=== PATIENT | male | born 2000 | race Two or more races ===

== ENCOUNTER 2021-10-13 10:33 | Inpatient (IN) | payer MEDICAID ==
[~2021-10-13] VITALS: Ht 177.8 cm; Wt 85.5 kg
[2021-10-13 11:30] VITALS: BP 96/67
[2021-10-13] MEDS ORDERED: nicotine 21mg patch - 24 hr TD SCH (11:40)
[2021-10-13] MEDS ORDERED: acetaminophen 325mg tablet PO PRN (11:40)
[2021-10-13] MEDS ORDERED: loperamide 2mg capsule PO PRN (11:40)
[2021-10-13] MEDS ORDERED: mag hydrox/Alum hydrox/simeth 30ml oral suspension PO PRN (11:40)
[2021-10-13] MEDS ORDERED: NICOTINE POLACRILEX 2 MG LOZENGE BC PRN (11:40)
[2021-10-13] MEDS ORDERED: RISP2TAB97 PO (11:50)
[2021-10-13] MEDS ORDERED: thiamine PO (11:50)
[2021-10-13] MEDS ORDERED: BENZ1TAB7 PO (11:50)
[2021-10-13] MEDS ORDERED: folic acid PO (11:50)
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
--- NOTE | 2021-10-13 14:44 | NUR ---
Malnutrition consult: Pt unsure of wt loss though with decreased appetite per malnutrition risk screen with RN. Per EMR pt A/O x 2 and a poor historian. No scaled wt hx in EMR though current scaled wt is appropriate. Pending documentation of PO intake on a regular diet. Pt with no documented decrease in muscle strength or edema. Pt currently lacks a minimum of two criteria for malnutrition though will continue to follow and monitor qualifying criteria. Addendum: 10/13/21 at [address] Amended: Links added.
--- NOTE | 2021-10-13 14:54 | NUR ---
F/u: Pt with 100% PO intake of first meal. Addendum: 10/13/21 at [address] Amended: Links added.
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
[2021-10-13 19:05] VITALS: BP 98/54
[2021-10-13] MEDS: benztropine 1mg tablet PO SCH (20:10)
[2021-10-13] MEDS: risperiDONE 2mg tablet PO SCH (20:11)
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
[2021-10-14 07:10] VITALS: BP 128/73
[2021-10-14] MEDS: risperiDONE 2mg tablet PO SCH ×2 (07:50→20:38)
[2021-10-14] MEDS: folic acid 1mg tablet PO SCH (07:50)
[2021-10-14] MEDS: thiamine 100mg tablet PO SCH (07:50)
[2021-10-14] MEDS: benztropine 1mg tablet PO SCH ×2 (07:50→20:38)
[2021-10-14 08:36] LABS: CHOL/HDL RATIO 3.2 (0.00-4.99); CHOLESTEROL 197 MG/DL (0-200); HDL CHOLESTEROL 61 MG/DL (35-60); LDL CHOLESTEROL 122 MG/DL (50-100); TRIGLYCERIDES 38 MG/DL (20-135)
[2021-10-14] MEDS: acetaminophen 325mg tablet PO PRN (12:01)
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
[2021-10-14 19:39] VITALS: BP 97/54
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
[2021-10-15 07:20] VITALS: BP 128/73
[2021-10-15] MEDS: benztropine 1mg tablet PO SCH ×2 (07:53→20:20)
[2021-10-15] MEDS: thiamine 100mg tablet PO SCH (07:53)
[2021-10-15] MEDS: folic acid 1mg tablet PO SCH (07:53)
[2021-10-15] MEDS: risperiDONE 2mg tablet PO SCH ×2 (07:53→20:20)
[2021-10-15] MEDS: magnesium hydroxide 30ml (MOM) UD suspension PO PRN (11:31)
[2021-10-15] MEDS: acetaminophen 325mg tablet PO PRN (11:31)
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
[2021-10-15 19:36] VITALS: BP 105/60
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
[2021-10-16] MEDS: thiamine 100mg tablet PO SCH (07:59)
[2021-10-16 08:00] VITALS: BP 100/75
[2021-10-16] MEDS: folic acid 1mg tablet PO SCH (08:00)
[2021-10-16] MEDS: risperiDONE 2mg tablet PO SCH ×2 (08:00→20:16)
[2021-10-16] MEDS: benztropine 1mg tablet PO SCH ×2 (08:00→20:16)
[2021-10-16] MEDS: duloxetine 30mg CAPSULE.DR PO SCH (08:00)
[2021-10-16] MEDS: acetaminophen 325mg tablet PO PRN ×2 (12:06→17:01)
[2021-10-16] MEDS: magnesium hydroxide 30ml (MOM) UD suspension PO PRN (12:20)
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
[2021-10-16 19:19] VITALS: BP 99/55
[2021-10-16] MEDS: polyethylene glycol 3350 17gm powd pack PO SCH (20:16)
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
[2021-10-17 07:00] VITALS: BP 117/61
[2021-10-17] MEDS: thiamine 100mg tablet PO SCH (07:59)
[2021-10-17] MEDS: risperiDONE 2mg tablet PO SCH ×2 (07:59→20:14)
[2021-10-17] MEDS: duloxetine 30mg CAPSULE.DR PO SCH (07:59)
[2021-10-17] MEDS: benztropine 1mg tablet PO SCH ×2 (07:59→20:13)
[2021-10-17] MEDS: folic acid 1mg tablet PO SCH (07:59)
--- NOTE | 2021-10-17 14:13 | NUR ---
Initial: Pt admit for psychosis. Currently on a regular diet and eating well with 100% PO intake throughout LOS meeting estimated nutrient needs. LBM 10/16, receiving routine and PRN bowel care. No documented edema or wounds. No nutrition diagnosis at this time. Will continue to follow. Recommendations: 1) Continue regular diet 2) Routine bowel care 3) Weekly scaled weights Addendum: 10/17/21 at [address] Amended: Links added.
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
[2021-10-17 19:27] VITALS: BP 95/68
[2021-10-17] MEDS: risperiDONE 0.5mg tablet PO SCH (20:13)
[2021-10-17] MEDS: polyethylene glycol 3350 17gm powd pack PO SCH (20:18)
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
[2021-10-18 07:47] VITALS: BP 92/50
[2021-10-18] MEDS: duloxetine 30mg CAPSULE.DR PO SCH (08:13)
[2021-10-18] MEDS: folic acid 1mg tablet PO SCH (08:13)
[2021-10-18] MEDS: benztropine 1mg tablet PO SCH ×2 (08:13→20:18)
[2021-10-18] MEDS: risperiDONE 2mg tablet PO SCH ×2 (08:14→20:17)
[2021-10-18] MEDS: thiamine 100mg tablet PO SCH (08:14)
[2021-10-18] MEDS: acetaminophen 325mg tablet PO PRN ×2 (14:24→18:37)
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
[2021-10-18 19:12] VITALS: BP 103/62
[2021-10-18] MEDS: gabapentin 100mg capsule PO SCH (20:16)
[2021-10-18] MEDS: risperiDONE 0.5mg tablet PO SCH (20:17)
[2021-10-18] MEDS: traZODone 50mg tablet PO PRN (20:18)
[2021-10-18] MEDS: polyethylene glycol 3350 17gm powd pack PO SCH (20:19)
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
[2021-10-19 07:30] VITALS: BP 123/69
[2021-10-19] MEDS: risperiDONE 2mg tablet PO SCH ×2 (08:08→20:31)
[2021-10-19] MEDS: duloxetine 30mg CAPSULE.DR PO SCH (08:09)
[2021-10-19] MEDS: folic acid 1mg tablet PO SCH (08:09)
[2021-10-19] MEDS: benztropine 1mg tablet PO SCH ×2 (08:09→20:31)
[2021-10-19] MEDS: gabapentin 100mg capsule PO SCH ×3 (08:09→20:31)
[2021-10-19] MEDS: thiamine 100mg tablet PO SCH (08:09)
--- NOTE | 2021-10-19 16:13 | NUR ---
PROBABLE CAUSE HEARING FOR 5250 DTS/GD WAS UPHELD
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
[2021-10-19] MEDS: acetaminophen 325mg tablet PO PRN (19:10)
[2021-10-19 19:38] VITALS: BP 106/56
[2021-10-19] MEDS: risperiDONE 0.5mg tablet PO SCH (20:30)
[2021-10-19] MEDS: polyethylene glycol 3350 17gm powd pack PO SCH (20:31)
[2021-10-19] MEDS: traZODone 50mg tablet PO PRN (20:39)
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
[2021-10-20 07:34] VITALS: BP 97/52
[2021-10-20] MEDS: folic acid 1mg tablet PO SCH (08:04)
[2021-10-20] MEDS: gabapentin 100mg capsule PO SCH ×3 (08:04→20:14)
[2021-10-20] MEDS: thiamine 100mg tablet PO SCH (08:04)
[2021-10-20] MEDS: benztropine 1mg tablet PO SCH ×2 (08:04→20:14)
[2021-10-20] MEDS: risperiDONE 2mg tablet PO SCH ×2 (08:04→20:14)
--- NOTE | 2021-10-20 08:58 | NUR ---
Pt. attended group today. We talked about healthy living habits such as sleep, exercise, and nutrition and medication management. Pt. sat quietly in the group listening to his peers and this Rat Culturist. He declined sharing any of his thoughts. His overall demeanor was calm and pleasant. Mary Worley LCSW
[2021-10-20] MEDS: duloxetine 30mg CAPSULE.DR PO SCH (09:14)
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
[2021-10-20] MEDS: acetaminophen 325mg tablet PO PRN (18:52)
[2021-10-20 19:42] VITALS: BP 105/59
[2021-10-20] MEDS: risperiDONE 0.5mg tablet PO SCH (20:13)
[2021-10-20] MEDS: traZODone 50mg tablet PO PRN (20:14)
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
[2021-10-21] MEDS: gabapentin 100mg capsule PO SCH ×2 (07:13→13:36)
[2021-10-21] MEDS: benztropine 1mg tablet PO SCH ×2 (07:14→20:09)
[2021-10-21] MEDS: folic acid 1mg tablet PO SCH (07:14)
[2021-10-21] MEDS: risperiDONE 2mg tablet PO SCH ×2 (07:14→20:09)
[2021-10-21] MEDS: thiamine 100mg tablet PO SCH (07:14)
[2021-10-21] MEDS: duloxetine 30mg CAPSULE.DR PO SCH (07:14)
[2021-10-21 07:20] VITALS: BP 104/60
--- NOTE | 2021-10-21 14:46 | NUR ---
Pt. attended group today. We discussed Radical Acceptance and Distress Tolerance skills. This Cabin Worker led a visualization that Pt. participated in. We completed a Self-Care Wheel exercise as well. Pt. engaged in the group well. He had a calm and pleasant demeanor. He was alert and oriented X 4. He was quiet and spoke minimally in group but listened intently to this Cabin Worker and his peers. Hr participated in the Visualization and reported that is was helpful to him. Mary Worley, SUPERVISOR HOT DIP [employer]ATING
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
[2021-10-21 19:33] VITALS: BP 112/70
[2021-10-21] MEDS: traZODone 50mg tablet PO PRN (20:09)
[2021-10-21] MEDS: gabapentin 300mg capsule PO SCH (20:09)
[2021-10-21] MEDS: risperiDONE 0.5mg tablet PO SCH (20:10)
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
[2021-10-22 07:32] VITALS: BP 99/46
[2021-10-22] MEDS: duloxetine 30mg CAPSULE.DR PO SCH (08:20)
[2021-10-22] MEDS: benztropine 1mg tablet PO SCH ×2 (08:21→20:08)
[2021-10-22] MEDS: risperiDONE 2mg tablet PO SCH ×2 (08:21→20:07)
[2021-10-22] MEDS: folic acid 1mg tablet PO SCH (08:21)
[2021-10-22] MEDS: gabapentin 300mg capsule PO SCH ×3 (08:21→20:08)
[2021-10-22] MEDS: thiamine 100mg tablet PO SCH (08:21)
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
[2021-10-22 19:34] VITALS: BP 108/67
[2021-10-22] MEDS: risperiDONE 0.5mg tablet PO SCH (20:07)
[2021-10-22] MEDS: traZODone 50mg tablet PO SCH (20:08)
[2021-10-22] MEDS: acetaminophen 325mg tablet PO PRN (20:09)
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
[2021-10-23] MEDS: duloxetine 30mg CAPSULE.DR PO SCH (07:12)
[2021-10-23] MEDS: thiamine 100mg tablet PO SCH (07:12)
[2021-10-23] MEDS: risperiDONE 2mg tablet PO SCH ×2 (07:13→20:22)
[2021-10-23] MEDS: benztropine 1mg tablet PO SCH ×2 (07:13→20:22)
[2021-10-23] MEDS: gabapentin 300mg capsule PO SCH ×3 (07:13→20:22)
[2021-10-23] MEDS: folic acid 1mg tablet PO SCH (07:13)
[2021-10-23 07:33] VITALS: BP 105/52
--- NOTE | 2021-10-23 09:19 | NUR ---
Pt. attended group today. Each pt. scaled their mood and anxiety level today to practice scaling. We discussed how trauma/emotion remains in your body and how the brain send messages to the amygdala which can cause a flight/fight response. Pt. engaged well in the group, he was interested in the information about the limbic system. Pt spoke minimally but listened intently and engaged in writing down his coping skills. He was alert and oriented X 4. His thought content and thought process appeared WNL. He was pleasant to work with. He appropriately interacted with his peers. Mary Worley LCSW Addendum: 10/23/21 at 0958 by Mary Worley This note was for attendance at group yesterday 10/22/2021.
--- NOTE | 2021-10-23 14:49 | NUR ---
Met with Marcel as he wanted to discuss discharge plan. He reported he wants to stay in [facility]. He reported he is homeless and does not want to return to [facility]. He also noted he does not know anyone in [place]. He inquired about services in [place] and junior copywriter informed him that he would have to wait for his Medi-ashleigh to change before he could access services which could take a month or two. Called [facility] for additional information. They reported his [facility] only pays for out-patient drug and alcohol tx, not inpatient. [facility] does have out-patient services which he could utilize. They reported he had been homeless in [place]. Inquired if he is on probation and they said they do not have access to that information. They reported Marcel can access the [place] [facility] or the [facility] upon discharge. JUAN MIGUEL Guillen
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
[2021-10-23 19:00] VITALS: BP 107/70
[2021-10-23] MEDS: acetaminophen 325mg tablet PO PRN (19:03)
[2021-10-23] MEDS: traZODone 50mg tablet PO SCH (20:22)
[2021-10-23] MEDS: risperiDONE 0.5mg tablet PO SCH (20:22)
--- NOTE | 2021-10-23 23:00 | NUR ---
5150 NOTE: REASON FOR ADMIT: "Patient unable to state how he would meet his basic needs, including food and detention. Hx of grave disability."
--- NOTE | 2021-10-24 02:05 | NUR ---
Nursing Progress Note: Legal hold: 5250 Client on involuntary status for GD Report received from DRE Bennett with use of SBAR. Why they are here: "Patient unable to state how he would meet his basic needs, including food and assisted. Hx of grave disability." Assessment What has happened this shift: Patient watching TV and social with peers in the recreation room at the beginning of shift. Pleasant and cooperative with care; compliant with medication. PRN Tylenol provided upon patient request for hand pain with effective results reported. Patient denies SI, HI, A/VH this shift; does not appear to be responding to IS and no apparent delusions reported. Patient participated in HS snack and continued to watch TV with peers prior to bed; observed sleeping and does not appear to be having difficulty. S/I, H/I: Denies A/VH: Denies Sleep: Refer to sleep assessment ADL's: Independent Group attendance: NA Were meds taken: Yes Any med S/E: None observed or reported Mental Status Exam Appearance: Neat and appropriately dressed in green unit attire Eye contact: Fair Behavior: Pleasant and cooperative, social, watching TV with peers Speech: Clear, audible, regular rate rhythm Mood: Good Affect: Congruent Thought process: Linear Thought Content: Meeting needs Cognition: A&O x3 Insight: Poor Judgment: Poor Interventions PRN's used: Tylenol Therapeutic interventions: Maintained a safe and supportive environment, ensured contract for safety, provided direction and assistance as needed, monitored rt provided active listening and positive encouragement, and maintained Q 15min safety checks. Restraints/seclusion/emergency medication: NA Justification of Continued Inpatient Treatment: PA, pt. continues to require medication adjustments and a safe and supportive environment.
[2021-10-24 08:00] VITALS: BP 115/68
[2021-10-24] MEDS: gabapentin 300mg capsule PO SCH ×3 (08:52→20:05)
[2021-10-24] MEDS: benztropine 1mg tablet PO SCH ×2 (08:52→20:05)
[2021-10-24] MEDS: risperiDONE 2mg tablet PO SCH ×2 (08:52→20:04)
[2021-10-24] MEDS: duloxetine 30mg CAPSULE.DR PO SCH (08:52)
[2021-10-24] MEDS: folic acid 1mg tablet PO SCH (08:52)
[2021-10-24] MEDS: thiamine 100mg tablet PO SCH (08:52)
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
[2021-10-24 19:39] VITALS: BP 104/65
[2021-10-24] MEDS: risperiDONE 0.5mg tablet PO SCH (20:04)
[2021-10-24] MEDS: traZODone 50mg tablet PO SCH (20:05)
[2021-10-24] MEDS: acetaminophen 325mg tablet PO PRN (20:05)
--- NOTE | 2021-10-25 04:17 | NUR ---
Nursing Progress Note: Legal hold: 5250 Client on involuntary status for GD Report received from DRE Bennett with use of SBAR. Why they are here: "Patient unable to state how he would meet his basic needs, including food and skilled nursing. Hx of grave disability." Assessment What has happened this shift: Patient watching TV with peers in the community room at the beginning of shift. Pleasant and cooperative with care; compliant with medication. PRN Tylenol provided for his hand pain with effectiveness reported. Patient reported a sore throat this shift, denies SOB and body aches, VSS. Patient endorsed "a little bit" of SI this shift with no plan, denies HI, A/VH; does not appear to be responding to IS and no apparent delusions reported. Patient participated in HS snack and continued to watch TV with peers prior to bed; observed sleeping and does not appear to be having difficulty. S/I, H/I: Passive SI A/VH: Denies Sleep: Refer to sleep assessment ADL's: Independent Group attendance: NA Were meds taken: Yes Any med S/E: None observed or reported Mental Status Exam Appearance: Neat and appropriately dressed in green unit attire Eye contact: Fair Behavior: Pleasant and cooperative, social, watching TV with peers Speech: Clear, audible, regular rate rhythm Mood: Good Affect: Congruent Thought process: Linear Thought Content: Meeting needs Cognition: A&O x3 Insight: Poor Judgment: Poor Interventions PRN's used: Tylenol Therapeutic interventions: Maintained a safe and supportive environment, ensured contract for safety, provided direction and assistance as needed, monitored rt provided active listening and positive encouragement, and maintained Q 15min safety checks. Restraints/seclusion/emergency medication: NA Justification of Continued Inpatient Treatment: PA, pt. continues to require medication adjustments and a safe and supportive environment.
[2021-10-25 07:11] VITALS: BP 107/50
--- NOTE | 2021-10-25 07:15 | NUR ---
Reassessment: Pt currently on a regular diet and eating well with 100% PO intake throughout LOS meeting estimated nutrient needs. [facility] 10/16, receiving routine and PRN bowel care. No documented edema or wounds. No nutrition diagnosis at this time. Will continue to follow. Recommendations: 1) Continue regular diet 2) Routine bowel care 3) Weekly scaled weights Addendum: 10/25/21 at [address] Amended: Links added.
[2021-10-25] MEDS: folic acid 1mg tablet PO SCH (08:39)
[2021-10-25] MEDS: benztropine 1mg tablet PO SCH ×2 (08:40→20:29)
[2021-10-25] MEDS: duloxetine 30mg CAPSULE.DR PO SCH (08:40)
[2021-10-25] MEDS: gabapentin 300mg capsule PO SCH ×3 (08:40→20:29)
[2021-10-25] MEDS: thiamine 100mg tablet PO SCH (08:40)
[2021-10-25] MEDS: risperiDONE 2mg tablet PO SCH ×2 (08:40→20:29)
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
[2021-10-25 19:15] VITALS: BP 108/63
[2021-10-25] MEDS: traZODone 50mg tablet PO SCH (20:29)
[2021-10-25] MEDS: risperiDONE 0.5mg tablet PO SCH (20:29)
[2021-10-25] MEDS: acetaminophen 325mg tablet PO PRN (20:36)
--- NOTE | 2021-10-26 04:42 | NUR ---
Nursing Progress Note: Legal hold: 5250 Client on involuntary status for GD Report received from Amador RN with use of SBAR. Why they are here: "Patient unable to state how he would meet his basic needs, including food and prison. Hx of grave disability." Assessment What has happened this shift: Patient watching TV with peers at the beginning of shift. Pleasant and cooperative with care; compliant with medication. PRN Tylenol provided for AGUILERA and hand pain. Patient reports some nasal congestion and sore throat this shift. He denies SI, HI, A/VH. Patient participated in HS snack prior to bed; observed sleeping and does not appear to be having difficulty. S/I, H/I: Denies A/VH: Denies Sleep: Refer to sleep assessment ADL's: Independent Group attendance: NA Were meds taken: Yes Any med S/E: None observed or reported Mental Status Exam Appearance: Neat and appropriately dressed for the unit Eye contact: Good Behavior: Pleasant and cooperative, social, watching TV with peers Speech: Clear, audible, regular rate rhythm Mood: Good Affect: Congruent Thought process: Linear Thought Content: Meeting needs Cognition: A&O x3 Insight: Poor Judgment: Poor Interventions PRN's used: Tylenol Therapeutic interventions: Maintained a safe and supportive environment, ensured contract for safety, provided direction and assistance as needed, monitored rt provided active listening and positive encouragement, and maintained Q 15min safety checks. Restraints/seclusion/emergency medication: NA Justification of Continued Inpatient Treatment: PA, pt. continues to require medication adjustments and a safe and supportive environment.
[2021-10-26 08:00] VITALS: BP 110/70
[2021-10-26] MEDS: thiamine 100mg tablet PO SCH (08:16)
[2021-10-26] MEDS: risperiDONE 2mg tablet PO SCH ×2 (08:16→20:36)
[2021-10-26] MEDS: gabapentin 300mg capsule PO SCH ×3 (08:16→20:36)
[2021-10-26] MEDS: duloxetine 30mg CAPSULE.DR PO SCH (08:16)
[2021-10-26] MEDS: folic acid 1mg tablet PO SCH (08:16)
[2021-10-26] MEDS: benztropine 1mg tablet PO SCH ×2 (08:16→20:36)
--- NOTE | 2021-10-26 13:02 | NUR ---
Nursing Progress Note: Legal hold: 5250 Client on involuntary status for GD Report received from nurse with use of SBAR: Amador RN Why are they here: "Patient unable to state how he would meet his basic needs, including food and fci. Hx of grave disability." Assessment What has happened this shift: Received pt. sleeping in bed at the beginning of the shift, he was awoken for breakfast which he ate in his room per unit protocol at this time. Pt. consented to wearing a mask when out of his room, however requires frequent reminders. This senior grant writer introduced self and established rapport, he presents as cooperative, guarded, slightly anxious, and withdrawn. Pt. reports ongoing A/AGUILERA which are command in nature, he states, "They tell me to hurt myself and (random) others." He also admits to S/I due to these A/AGUILERA, but does not endorse any current plan. Pt. is able to contract for safety, and reports he is able to ignore the voices, states, "I just lay in my bed." This senior grant writer provided education to pt. to notify staff of any changes (inability to ignore A/AGUILERA or increasing S/I), and he reported understanding. Pt. also reports paranoid delusional thoughts that others want to hurt him. When questioned regarding plans for discharge, pt. reports he is unsure and he has no family or friends here, but would like to stay in [facility]. Pt. remains up throughout the day in the Group and Recreation Rooms watching TV and interacting appropriately with others. He is compliant with wearing a mask, V/S are WNL, and no s/s of cold, fatigue, or headache exhibited. S/I, H/I: Pt. reports S/I, does not endorse any current plan A/VH: Ongoing command A/AGUILERA telling him to hurt himself and random others Sleep: Sleep hours are 7.5, and pt. naps intermittently during the day ADL's: Pt. requires some direction and encouragement Group attendance: N/A Were meds taken: Yes Any med S/E: None Mental Status Exam Appearance: Pt. is wearing green scrubs and a black beanie cap on his head Eye contact: Fair Behavior: Cooperative, guarded, slightly anxious, and withdrawn Speech: Soft and minimal, pt. responds to closed-ended questions Mood: Guarded and slightly anxious Affect: Blunted Thought process: Poverty of thought with possible thought blocking Thought Content: Command A/AGUILERA and paranoid delusions Cognition: A&O X4 Insight: Poor Judgment: Poor Interventions PRN's used: None Therapeutic interventions: Introduced self and established rapport, maintained a safe and therapeutic environment, ensured contact for safety, provided clear and simple instructions, attempted to orient to reality, monitored V/S and physical adverse s/s, and maintained Q 15min safety checks. Restraints/seclusion/emergency medication: N/A Justification of Continued Inpatient Treatment: Per Dr. Walls, pt. continues to require a safe and supportive environment. He will discharge to [facility] or [facility], to be discussed with social scientist.
[2021-10-26 19:00] VITALS: BP 111/66
[2021-10-26] MEDS: traZODone 50mg tablet PO SCH (20:36)
[2021-10-26] MEDS: risperiDONE 0.5mg tablet PO SCH (20:36)
[2021-10-26] MEDS: acetaminophen 325mg tablet PO PRN (20:40)
--- NOTE | 2021-10-27 01:32 | NUR ---
Nursing Progress Note: Legal hold: 5250 Client on involuntary status for GD Report received from DRE Bennett with use of SBAR. Why they are here: "Patient unable to state how he would meet his basic needs, including food and long term. Hx of grave disability." Assessment What has happened this shift: Patient watching football with peers in the recreation room at the beginning of shift. Pleasant and cooperative with care; compliant with medication. PRN Tylenol provided for hand pain per patient request. Denies SI, HI, A/VH this shift and does not appear to be responding to IS. No apparent delusions reported. Patient participated in HS snack prior to bed; observed sleeping and does not appear to be having difficulty. S/I, H/I: Denies A/VH: Denies Sleep: Refer to sleep assessment ADL's: Independent Group attendance: NA Were meds taken: Yes Any med S/E: None observed or reported Mental Status Exam Appearance: Neat and appropriately dressed for the unit Eye contact: Good Behavior: Pleasant and cooperative, social, watching TV with peers Speech: Clear, audible, regular rate rhythm Mood: Good Affect: Congruent Thought process: Linear Thought Content: Meeting needs Cognition: A&O x3 Insight: Poor Judgment: Poor Interventions PRN's used: Tylenol Therapeutic interventions: Maintained a safe and supportive environment, ensured contract for safety, provided direction and assistance as needed, monitored rt provided active listening and positive encouragement, and maintained Q 15min safety checks. Restraints/seclusion/emergency medication: NA Justification of Continued Inpatient Treatment: PA, pt. continues to require medication adjustments and a safe and supportive environment.
[2021-10-27 07:28] VITALS: BP 93/50
[2021-10-27] MEDS: folic acid 1mg tablet PO SCH (08:14)
[2021-10-27] MEDS: thiamine 100mg tablet PO SCH (08:14)
[2021-10-27] MEDS: benztropine 1mg tablet PO SCH ×2 (08:14→20:50)
[2021-10-27] MEDS: risperiDONE 2mg tablet PO SCH ×2 (08:14→20:51)
[2021-10-27] MEDS: duloxetine 30mg CAPSULE.DR PO SCH (08:14)
[2021-10-27] MEDS: gabapentin 300mg capsule PO SCH ×3 (08:14→20:50)
--- NOTE | 2021-10-27 08:34 | NUR ---
DCP Presenting Issues: Pt's stable and needs assistance w/dcp as he's homeless. Interventions: SS met w/pt and engaged him in dcp activities. Clinician utilized CBT strategies and provided support for pt to explore the pros & cons of staying in [facility] while he has [facility]. Per session pt agreed to rt to [facility] and want assistance to get to a residential in [place]. Clinician had t/c w/[facility] DCP-[facility], per t/c Patricia will fax paperwork for pt to sign so [facility] can assist with pt's [id number] to residential bed in [place]. Plan: Clinician will obtain pt's signature on DYLON and send it back to [facility], d/c is pending COVID quarantine situation at this time. Aleah Horne LCSW Addendum: 10/27/21 at 1024 by Aleah ZHOU Amended: Links added.
--- NOTE | 2021-10-27 13:47 | NUR ---
DCP Clinician obtained pt's signature on DYLON & sent to [facility] to facilitate pt's access to services & support from [facility] upon d/c. Aleah Horne LCSW Addendum: 10/27/21 at 1352 by Aleah Horne SS Amended: Links added.
--- NOTE | 2021-10-27 14:19 | NUR ---
Nursing Progress Note: Legal hold: 5250 Client on involuntary status for GD Report received from nurse with use of SBAR: DRE Capps Why are they here: "Patient unable to state how he would meet his basic needs, including food and usp. Hx of grave disability." Assessment What has happened this shift: Received pt. sleeping in bed at the beginning of the shift, he was awoken for breakfast which he ate in his room per unit protocol at this time. Afterwards, pt. remains up with his room mate in the Recreation Room watching TV. 1:1 completed later, pt. continues to report some ongoing A/AGUILERA that tell him to hurt himself and random others, however he admits they are much less than before. He denies any S/I or H/I, however continues to report ongoing thoughts of random others wanting to hurt him. Pt's affect remains flat and he responds to direct questions only with a minimal response. Pt. remains up throughout the day in the Recreation Rooms watching TV and interacting appropriately, although minimally with others. He is compliant with wearing a mask, V/S are WNL, and no s/s of cold, fatigue, or headache exhibited. S/I, H/I: Denies A/VH: Some ongoing A/AGUILERA telling him to hurt himself and random others Sleep: Sleep hours are 7.25 ADL's: Pt. requires some direction and encouragement Group attendance: N/A Were meds taken: Yes Any med S/E: None Mental Status Exam Appearance: Neat and appropriately dressed Eye contact: Fair Behavior: Cooperative, guarded, slightly anxious, and withdrawn Speech: Soft and minimal, pt. responds to closed-ended questions Mood: Guarded and slightly anxious Affect: Flat Thought process: Poverty of thought with possible thought blocking Thought Content: Ongoing A/AGUILERA and paranoid delusions Cognition: A&O X4 Insight: Poor Judgment: Poor Interventions PRN's used: None Therapeutic interventions: Maintained a safe and therapeutic environment, ensured contact for safety, provided clear and simple instructions, attempted to orient to reality, provided active listening and positive encouragement, monitored V/S and physical adverse s/s, and maintained Q 15min safety checks. Restraints/seclusion/emergency medication: N/A Justification of Continued Inpatient Treatment: Per Dr. Walls, pt. continues to require a safe and supportive environment. He currently does not have a safe discharge plan and will continue to work with the social media analyst.
[2021-10-27 18:59] VITALS: BP 108/63
[2021-10-27 19:00] VITALS: BP 108/63
[2021-10-27] MEDS: traZODone 50mg tablet PO SCH (20:50)
[2021-10-27] MEDS: risperiDONE 0.5mg tablet PO SCH (20:50)
--- NOTE | 2021-10-28 03:25 | NUR ---
Nursing Progress Note: Legal hold: 5250 Client on involuntary status for GD Report received from DRE Bennett with use of SBAR. Why they are here: "Patient unable to state how he would meet his basic needs, including food and fpc. Hx of grave disability." Assessment What has happened this shift: Patient was watching a movie in the rec room at shift change. He is quite pleasant and cooperates. Patient reports that he needs to enter rehab when he leaves here. Patient continues to report voices that tell him to harm self or others. "It's getting better though." He makes no delusional statements. Patient watched movies until snack time, took HS meds, then went to bed where he has been observed. S/I, H/I: Denies A/VH: Denies Sleep: Refer to sleep assessment ADL's: Independent Group attendance: NA Were meds taken: Yes Any med S/E: None observed or reported Mental Status Exam Appearance: Neat and appropriately dressed for the unit Eye contact: Good Behavior: Pleasant and cooperative, social, watching TV with peers Speech: Clear, audible, regular rate rhythm Mood: Good Affect: Congruent Thought process: Linear Thought Content: Meeting needs Cognition: A&O x3 Insight: Poor Judgment: Poor Interventions PRN's used: Therapeutic interventions: Maintained a safe and supportive environment, ensured contract for safety, provided direction and assistance as needed, monitored rt provided active listening and positive encouragement, and maintained Q 15min safety checks. Restraints/seclusion/emergency medication: NA Justification of Continued Inpatient Treatment: PA, pt. continues to require medication adjustments and a safe and supportive environment.
[2021-10-28 07:06] VITALS: BP 99/52
[2021-10-28] MEDS: gabapentin 300mg capsule PO SCH ×3 (08:49→20:42)
[2021-10-28] MEDS: duloxetine 30mg CAPSULE.DR PO SCH (08:49)
[2021-10-28] MEDS: thiamine 100mg tablet PO SCH (08:49)
[2021-10-28] MEDS: risperiDONE 2mg tablet PO SCH ×2 (08:50→20:42)
[2021-10-28] MEDS: benztropine 1mg tablet PO SCH ×2 (08:50→20:42)
[2021-10-28] MEDS: acetaminophen 325mg tablet PO PRN ×2 (08:50→20:46)
[2021-10-28] MEDS: folic acid 1mg tablet PO SCH (08:50)
--- NOTE | 2021-10-28 12:52 | NUR ---
Nursing Progress Note: Legal hold: 5250 Client on involuntary status for GD Report received from nurse with use of SBAR: DRE Capps Why are they here: "Patient unable to state how he would meet his basic needs, including food and fci. Hx of grave disability." Assessment What has happened this shift: Received pt. sleeping in bed at the beginning of the shift, he was awoken for breakfast and ate in his room per unit protocol at this time. 1:1 completed at bedside, pt. remains guarded with conversation and he responds to direct questions only with a minimal responses. Pt. denies any A/AGUILERA, and he states animatedly, "They are gone!" However, he does report S/I, however denies any current plan. This ghost writer questioned pt. regarding the cause of his S/I and he stated unemotionally, "I don't know?" Pt. also reports depression r/t discharge and worries about where he will be going next. He reports ongoing paranoid delusional thoughts that random others want to hurt him. Pt. naps intermittently during the morning, and then remains up throughout the day watching TV and interacting minimally with others. He is compliant with wearing a mask, V/S are WNL, and no s/s of cold, fatigue, or headache exhibited. This ghost writer assessed pt's feet and they present as dry and cracked, obtained an order for Eucerin Cream BID. Medication administered and will continue to monitor. S/I, H/I: S/I without a plan A/VH: Denies, does not appear to be internally preoccupied Sleep: Sleep hours are 7.5, he naps intermittently during the morning ADL's: Independent Group attendance: N/A Were meds taken: Yes Any med S/E: None Mental Status Exam Appearance: Neat and appropriately dressed Eye contact: Fair Behavior: Cooperative, guarded, and withdrawn Speech: Soft and minimal, pt. responds to closed-ended questions Mood: Guarded and pleasant Affect: Constricted Thought process: Poverty of thought with possible thought blocking Thought Content: Ongoing paranoid delusions Cognition: A&O X4 Insight: Poor Judgment: Fair Interventions PRN's used: None Therapeutic interventions: Maintained a safe and therapeutic environment, ensured contact for safety, provided clear and simple instructions, attempted to orient to reality, provided active listening and positive encouragement, monitored V/S and physical adverse s/s, and maintained Q 15min safety checks. Restraints/seclusion/emergency medication: N/A Justification of Continued Inpatient Treatment: ADRIANO Saavedra, pt. continues to require a safe and supportive environment. He currently does not have a safe discharge plan and will continue to work with the social sciences department chair to find housing in his county [place] residence.
[2021-10-28 20:01] VITALS: BP 105/59
[2021-10-28] MEDS: traZODone 50mg tablet PO SCH (20:42)
[2021-10-28] MEDS: risperiDONE 0.5mg tablet PO SCH (20:42)
[2021-10-28] MEDS: mineral oil/petrolatum, white cream 113gm jar TP SCH (20:47)
--- NOTE | 2021-10-29 02:02 | NUR ---
Nursing Progress Note: Legal hold: 5250 Client on involuntary status for GD Report received from DRE Bennett with use of SBAR. Why they are here: "Patient unable to state how he would meet his basic needs, including food and retirement. Hx of grave disability." Assessment What has happened this shift: Received watching television and interacting with peers. Pt cooperative with pm assessment and medications. Pt c/o bilateral hand pain and requested tylenol which was given. Pt cooperative with room change. Pt continues to endorse auditory hallucinations and states the voices tell him to kill himself. Pt states the voices are easily drowned out when he provides a distraction like t.v. or playing a game or interacting with peers. S/I, H/I: Denies A/VH: Denies Sleep: Refer to sleep assessment ADL's: Independent Group attendance: NA Were meds taken: Yes Any med S/E: None observed or reported Mental Status Exam Appearance: Neat and appropriately dressed for the unit Eye contact: Good Behavior: Pleasant and cooperative, social, watching TV with peers Speech: Clear, audible, regular rate rhythm Mood: Good Affect: Congruent Thought process: Linear Thought Content: Meeting needs Cognition: A&O x3 Insight: Poor Judgment: Poor Interventions PRN's used: Tylenol Therapeutic interventions: Maintained a safe and supportive environment, ensured contract for safety, provided direction and assistance as needed, monitored rt provided active listening and positive encouragement, and maintained Q 15min safety checks. Restraints/seclusion/emergency medication: NA Justification of Continued Inpatient Treatment: PA, pt. continues to require medication adjustments and a safe and supportive environment.
[2021-10-29 08:00] VITALS: BP 91/42
[2021-10-29] MEDS ORDERED: gabapentin 100mg capsule PO SCH (08:00)
[2021-10-29] MEDS: benztropine 1mg tablet PO SCH ×2 (08:54→20:05)
[2021-10-29] MEDS: folic acid 1mg tablet PO SCH (08:54)
[2021-10-29] MEDS: duloxetine 30mg CAPSULE.DR PO SCH (08:54)
[2021-10-29] MEDS: risperiDONE 2mg tablet PO SCH ×2 (08:55→20:06)
[2021-10-29] MEDS: thiamine 100mg tablet PO SCH (08:55)
[2021-10-29] MEDS: mineral oil/petrolatum, white cream 113gm jar TP SCH ×2 (09:03→20:00)
--- NOTE | 2021-10-29 10:20 | NUR ---
DCP Presenting Issues: Pt's plan for d/c was to go to the [facility] in [place], and [facility] were willing to work w/pt. However, [facility] DCP informed clinician that the [facility] cannot accept new residents @ this time due to a rapid COVID outbreak there. Interventions: Clinician had t/c with [facility], DCP from [place] suggests a referral to the [facility] as they also operate a 6-month recovery program. Plan: Clinician will meet with patient and engage him in dcp activities and obtain consent for referral to the [facility]/rehab services. Aleah Horne LCSW Addendum: 10/29/21 at 1044 by Aleah Horne SS Amended: Links added.
--- NOTE | 2021-10-29 11:34 | NUR ---
DCP Presenting Issues: Pt's requests for access to Substance Use rehab/recovery services upon d/c. Pt will return to [facility] had recommended a referral to the [facility] rehab program in [place], pt will need to complete an application and fax it to them to be consider for admission. Interventions: Clinician met w/pt and engaged him in exploring possibility of the [facility] rehab program, pt agreed to allowing clinician to provide a referral there and will complete the application requesting services. Clinician met w/pt's assigned RN and updated her re pt's plans for d/c and asked her to check in w/pt to see if he's completed the application for the [facility] Rehab program and to retrieve and send it to clinician's office. Plan: Clinician will continue to engage pt & [facility] in dcp activities. Aleah Horne LCSW Addendum: 10/29/21 at 1148 by Aleah Horne SS Amended: Links added.
[2021-10-29] MEDS: gabapentin 300mg capsule PO SCH ×2 (13:38→20:06)
--- NOTE | 2021-10-29 17:19 | NUR ---
Nursing Progress Note: Legal hold: 5250 Client on involuntary status for GD Report received from BARBARA English with use of SBAR. Why they are here: "Patient unable to state how he would meet his basic needs, including food and retirement. Hx of grave disability." Assessment What has happened this shift: Received patient while he was sleeping in his bed, until breakfast. Administered 0800 medications and completed 1:1 physical assessment. Eucerin applied to the bilateral soles of his feet per MD order. Large dry flakes of skin and callouses noted. Patient states his feet are much better than when he came in. Patient spent most of the day in the Community Room watching movies, or riding the stationary bike, as well as maintaining 6 feet away from other patients. At approximately 1230, obtained a collection swab and sent it to the lab for a COVID-19 test. Informed patient that the results were negative. Patient continues to wear a mask while outside of his room, but has been eating all meals inside of his room. S/I, H/I: Denies A/VH: Denies Sleep: 7.00. No daytime naps. ADL's: Independent Group attendance: No Group Meetings held today. Were meds taken: Yes, without hesitation. Any med S/E: None observed or reported Mental Status Exam Appearance: Neat and appropriate dressed in green scrubs and a blue beanie on his head. Eye contact: Good Behavior: Pleasant and cooperative, watching TV in the Community Room. Speech: Clear, audible, regular rate rhythm Mood: Doing Good Today Affect: Congruent Thought process: Linear Thought Content: Meeting needs Cognition: A&O x3 Insight: Poor Judgment: Poor Interventions PRN's used: None Therapeutic interventions: Maintained a safe and supportive environment, ensured contract for safety, provided direction and assistance as needed, monitored rt provided active listening and positive encouragement, and maintained Q 15min safety checks. Restraints/seclusion/emergency medication: NA Justification of Continued Inpatient Treatment: PA, pt. continues to require medication adjustments and a safe and supportive environment.
[2021-10-29] MEDS: acetaminophen 325mg tablet PO PRN (18:34)
[2021-10-29 19:07] VITALS: BP 102/65
[2021-10-29] MEDS: traZODone 50mg tablet PO SCH (20:05)
[2021-10-29] MEDS: risperiDONE 0.5mg tablet PO SCH (20:05)
--- NOTE | 2021-10-30 00:32 | NUR ---
Nursing Progress Note: Legal hold: 5250 Client on involuntary status for GD Report received from DRE Galdamez with use of SBAR. Why they are here: "Patient unable to state how he would meet his basic needs, including food and residential. Hx of grave disability." Assessment What has happened this shift: Pt sitting in community room on exercise bike. Pt was watching a movie. This nurse asked the patient if he was having any s/s of Covid, pt denied any symptoms.Pt reported that he had a good day and was finding something new to watch on TV. Patient reports that the movie José Miguel "is trash" and would like some Tylenol for the ongoing pain in his hands. Pt denies A/V H pt took Tylenol with good effect. Pt asked for snacks with his evening meds, pt requested Frito corn chips and a sandwich with cranberry juice. Pt took medications w/o any complications and watched TV until 2230. S/I, H/I: Denies A/VH: Denies Sleep: See sleep hours ADL's: Independent Group attendance: No Group in the evenings Were meds taken: Yes Any med S/E: None observed or reported Mental Status Exam Appearance: Neat and appropriate dressed in green scrubs and a blue beanie on his head. Eye contact: Good Behavior: Pleasant and cooperative, watching TV in the Community Room. Speech: Clear, audible, regular rate rhythm Mood: good Affect: Congruent Thought process: Linear Thought Content: Meeting needs Cognition: A&O x3 Insight: Poor Judgment: Poor Interventions PRN's Tylenol 650mg Therapeutic interventions: Maintained a safe and supportive environment, ensured contract for safety, provided direction and assistance as needed, monitored rt provided active listening and positive encouragement, and maintained Q 15min safety checks. Restraints/seclusion/emergency medication: NA Justification of Continued Inpatient Treatment: PA, pt. continues to require medication adjustments and a safe and supportive environment.
[2021-10-30] MEDS: benztropine 1mg tablet PO SCH ×2 (08:16→20:34)
[2021-10-30] MEDS: duloxetine 30mg CAPSULE.DR PO SCH (08:17)
[2021-10-30] MEDS: risperiDONE 2mg tablet PO SCH ×2 (08:17→20:35)
[2021-10-30] MEDS: folic acid 1mg tablet PO SCH (08:17)
[2021-10-30] MEDS: gabapentin 300mg capsule PO SCH ×3 (08:17→20:35)
[2021-10-30] MEDS: thiamine 100mg tablet PO SCH (08:17)
[2021-10-30] MEDS: mineral oil/petrolatum, white cream 113gm jar TP SCH ×2 (08:20→20:00)
[2021-10-30 08:41] VITALS: BP 98/49
--- NOTE | 2021-10-30 16:52 | NUR ---
Nursing Progress Note: Legal hold: Voluntary Client on involuntary status for GD Report received from DRE Hinkle with use of SBAR. Why they are here: "Patient unable to state how he would meet his basic needs, including food and detention. Hx of grave disability." Assessment What has happened this shift: Received patient while he was sleeping. Easily aroused for breakfast. Ate meals in his room. When out of his room, in the Community Room, he wears a mask at all times. Patient watched a movie in the Community Room this morning and again at lunch time. Patient also has been riding the exercise bike in the Community Room. 1:1 patient assessment completed with discussion of signs & symptoms of COVID -19, and encouraged to report any fever, aches, pain, cough or congestion to Nurse as soon as they start. Patient reported last BM on 10/28/21. Asked ADRIANO Douglas, if patient could have an order to start Colace 100mg orally twice a day. Stella approved the order and patient to start Colace at 2000 tonight. Patient met with Stella for an office visit, and Stella changed his Legal Status to Voluntary. Patient presented with paperwork which he signed and returned to Ras Langston RN. Patient states I keep hearing multiple guys who are trying to kill me. Patient informed this is scary when he has these hallucinations. S/I, H/I: Denies A/VH: +AH (reports multiple guys who are trying to kill him. -VH Sleep: 6.50 hours ADL's: Independent Group attendance: No Group Meetings held today. Were meds taken: Yes, without hesitation. Any med S/E: None observed or reported Mental Status Exam Appearance: Neat and appropriate dressed in green scrubs and a blue beanie on his head. Eye contact: Good Behavior: Pleasant and cooperative, watching TV in the Community Room. Speech: Clear, audible, regular rate rhythm Mood: Comfortable Affect: Congruent Thought process: Linear Thought Content: Meeting needs Cognition: A&O x3 Insight: Poor Judgment: Poor Interventions PRN's: None Therapeutic interventions: Maintained a safe and supportive environment, ensured contract for safety, provided direction and assistance as needed, provided active listening and positive encouragement, and maintained Q 15min safety checks. Restraints/seclusion/emergency medication: NA Justification of Continued Inpatient Treatment: PA, pt. continues to require medication adjustments and a safe and supportive environment.
[2021-10-30] MEDS: acetaminophen 325mg tablet PO PRN (17:02)
[2021-10-30 19:00] VITALS: BP 109/65
[2021-10-30] MEDS: docusate sod 100mg capsule PO SCH (20:34)
[2021-10-30] MEDS: risperiDONE 0.5mg tablet PO SCH (20:34)
[2021-10-30] MEDS: traZODone 150mg tablet PO SCH (20:35)
--- NOTE | 2021-10-30 21:48 | NUR ---
Nursing Progress Note: Legal hold: Voluntary signed paper work for voluntary stay today Report received from DRE Crenshaw with use of SBAR. Why they are here: "Patient unable to state how he would meet his basic needs, including food and nursing home. Hx of grave disability." Assessment What has happened this shift: this marketing copywriter found patient in the community room watching a movie. This marketing copywriter asked patient how he was feeling physically, and patient reported that he was still feeling 6/10 pain in his hands despite receiving tylenol a few hours prior. Did not state experiencing any S/S of covid, also denied A/VH. Patient requested snacks and took his medications without incident, asked for trazodone specifically, made aware that it was scheduled and increased. He did, however, refuse the cream for his feet tonight. Patient finished his movie and went to bed around 2130. S/I, H/I: Denies A/VH: Denies Sleep: see sleep report, went to bed at 2130 ADL's: Independent Group attendance: No Group Meetings held today. Were meds taken: Yes, without hesitation, excluding foot cream Any med S/E: None observed or reported Mental Status Exam Appearance: Neat and appropriate dressed in green scrubs and a blue beanie on his head. Eye contact: Good, though focused on TV mostly Behavior: Pleasant and cooperative, watching TV in the Community Room. Speech: Clear, audible, regular rate rhythm Mood: Comfortable Affect: Congruent Thought process: Linear Thought Content: Meeting needs Cognition: A&O x3 Insight: Poor Judgment: Poor Interventions PRN's: None Therapeutic interventions: Maintained a safe and supportive environment, ensured contract for safety, provided direction and assistance as needed, provided active listening and positive encouragement, and maintained Q 15min safety checks. Restraints/seclusion/emergency medication: NA Justification of Continued Inpatient Treatment: PA, pt. continues to require medication adjustments and a safe and supportive environment.
--- NOTE | 2021-10-31 03:47 | NUR ---
this web content writer accidentally edited a previously entered SBAR note instead of saving the appropriately timed intervention. Could not undo the edit, so web content writer re-edited the note to the previous writers input Addendum: 10/31/21 at 0352 by Bruno Durand RN Amended: Links added.
[2021-10-31 06:52] VITALS: BP 98/54
[2021-10-31] MEDS ORDERED: risperiDONE 2mg tablet PO SCH (08:00)
[2021-10-31 08:29] VITALS: BP 98/54
[2021-10-31] MEDS: gabapentin 300mg capsule PO SCH ×3 (08:31→20:18)
[2021-10-31] MEDS: duloxetine 30mg CAPSULE.DR PO SCH (08:31)
[2021-10-31] MEDS: folic acid 1mg tablet PO SCH (08:31)
[2021-10-31] MEDS: benztropine 1mg tablet PO SCH ×2 (08:31→20:18)
[2021-10-31] MEDS: docusate sod 100mg capsule PO SCH ×2 (08:31→20:18)
[2021-10-31] MEDS: risperiDONE 0.5mg tablet PO SCH ×2 (08:32→20:18)
[2021-10-31] MEDS: mineral oil/petrolatum, white cream 113gm jar TP SCH ×2 (08:32→20:00)
[2021-10-31] MEDS: risperiDONE 2mg tablet PO SCH ×2 (08:40→20:18)
[2021-10-31] MEDS: thiamine 100mg tablet PO SCH (08:40)
[2021-10-31] MEDS ORDERED: LORazepam 1 MG tablet PO ONE (14:10)
[2021-10-31] MEDS ORDERED: hydrOXYzine 25 MG tablet PO PRN (14:15)
--- NOTE | 2021-10-31 17:27 | NUR ---
Nursing Progress Note: Legal hold: Voluntary signed paper work for voluntary stay today Report received from DRE Hinkle with use of SBAR. Why they are here: "Patient unable to state how he would meet his basic needs, including food and alf. Hx of grave disability." Assessment What has happened this shift: Received patient while he was sleeping in bed this morning. Got up and went to Community Room just before breakfast. 1:1 Patient Assessment completed & Interview. Patient reports he has been Blocking the voices who are telling me they are going to kill me. Patient up most of the day in the Community Room watching multiple movies. Pleasant and cooperative. (1500) Patient reported increased anxiety and Stella ordered Ativan 1mg po now. Will continue to monitor patient closely as to results of taking Ativan. Patient was sitting in the Community Room watching movies at the time of administration. (1600) Entered Community Room at 1600, and multiple times thereafter. Patient appeared to be sliding down into his chair, while sitting upright in the Community Room watching TV. Patient smiling and reported "Yes, I am feeling very relaxed." When asked if the Ativan helped with his "Anxiety," patient stated "Yes, finally I wasn't hearing those voices." S/I, H/I: Denies A/VH: +AH Trying to block voices telling me to kill myself. -VH Sleep: 7.75 hours ADL's: Independent Group attendance: No Group Meetings held today. Were meds taken: Yes, without hesitation Any med S/E: None observed or reported Mental Status Exam Appearance: Neat and dressed in green scrubs and a blue beanie on his head. Eye contact: Good Behavior: Pleasant and cooperative, watching TV in the Community Room. Speech: Regular rate & rhythm Mood: Comfortable Affect: Congruent Thought process: Linear Thought Content: Meeting needs Cognition: A&O x3 Insight: Poor Judgment: Poor Interventions PRN's: Therapeutic interventions: Maintained a safe and supportive environment, ensured contract for safety, provided direction and assistance as needed, provided active listening and positive encouragement, and maintained Q 15min safety checks. Restraints/seclusion/emergency medication: NA Justification of Continued Inpatient Treatment: PA, pt. continues to require medication adjustments and a safe and supportive environment.
[2021-10-31 19:00] VITALS: BP 112/81
[2021-10-31] MEDS: acetaminophen 325mg tablet PO PRN (19:49)
[2021-10-31] MEDS: traZODone 150mg tablet PO SCH (20:18)
--- NOTE | 2021-11-01 02:36 | NUR ---
Nursing Progress Note: Marcel Legal hold: Voluntary Report received from Denice ERICKSON with use of SBAR. Why they are here: "Patient unable to state how he would meet his basic needs, including food and mcfp. Hx of grave disability." Assessment What has happened this shift: Received patient in the community room watching TV with peers. Pt calm and cooperative with care. States he had heard voices telling him to hurt himself but no longer hears those voices. Denies depression but has some anxiety however the pt states he got something for that earlier. Pt requested PRN Tylenol for mild AGUILERA and achiness in his hands. Given with good effect. Pt took all HS medications without issue and went to bed. S/I, H/I: Denies A/VH: States he does not hear voices at this time. Sleep: ADL's: Independent Group attendance: No Group Meetings held today. Were meds taken: Yes, without hesitation Any med S/E: None observed or reported Mental Status Exam Appearance: Neat and dressed in green scrubs and a blue beanie on his head. Eye contact: Good Behavior: Pleasant and cooperative, watching TV in the Community Room. Speech: Regular rate & rhythm Mood: Comfortable Affect: Congruent Thought process: Linear Thought Content: Meeting needs Cognition: A&O x3 Insight: Poor Judgment: Poor Interventions PRN's: Therapeutic interventions: Maintained a safe and supportive environment, ensured contract for safety, provided direction and assistance as needed, provided active listening and positive encouragement, and maintained Q 15min safety checks. Restraints/seclusion/emergency medication: NA Justification of Continued Inpatient Treatment: PA, pt. continues to require medication adjustments and a safe and supportive environment.
[2021-11-01 07:30] VITALS: BP 91/53
[2021-11-01] MEDS: mineral oil/petrolatum, white cream 113gm jar TP SCH ×2 (08:00→20:00)
[2021-11-01] MEDS: risperiDONE 0.5mg tablet PO SCH ×2 (08:19→21:40)
[2021-11-01] MEDS: thiamine 100mg tablet PO SCH (08:19)
[2021-11-01] MEDS: benztropine 1mg tablet PO SCH ×2 (08:19→21:40)
[2021-11-01] MEDS: risperiDONE 2mg tablet PO SCH ×2 (08:19→21:40)
[2021-11-01] MEDS: docusate sod 100mg capsule PO SCH ×2 (08:19→21:40)
[2021-11-01] MEDS: duloxetine 30mg CAPSULE.DR PO SCH (08:19)
[2021-11-01] MEDS: gabapentin 300mg capsule PO SCH ×3 (08:19→21:39)
[2021-11-01] MEDS: folic acid 1mg tablet PO SCH (08:20)
[2021-11-01] MEDS: acetaminophen 325mg tablet PO PRN (13:34)
--- NOTE | 2021-11-01 16:32 | NUR ---
Nursing Progress Note: Legal hold: Voluntary signed paper work for voluntary stay today Report received from DRE Hinkle with use of SBAR. Why they are here: "Patient unable to state how he would meet his basic needs, including food and correction. Hx of grave disability." Assessment What has happened this shift: Rn received pt. asleep in bed at start of shift. Pt. awoke for breakfast and took all medications and went back to sleep. Pt. awoke mid-morning. 1:1 done at bedside, pt. denies SI/HI, but reports +AH, states hearing voices that tell him to kill himself. Pt. sitting in day room watching movies alternating with naps in his room. Pt. received Tylenol 650mg po for bilateral hand pain with good effect. Pt. c/o of anxiety and receive Atarax 25mg po with good effect. S/I, H/I: Denies A/VH: +CAH, voices telling him to kill himself. Sleep: 7.50 hours on NOC shift and naps intermittently throughout the day. ADL's: Independent Group attendance: No Group Meetings held today. Were meds taken: Yes Any med S/E: Denies. None observed. Mental Status Exam Appearance: Neat and clean, wearing green unit scrubs. Eye contact: WNL Behavior: Pleasant and cooperative, watching TV in the Community Room and napping in his room. Speech: WNL Mood: Euthymic Affect: Congruent with mood. Thought process: Linear but experiences CAH. Thought Content: Circumstantial. Cognition: A&O x3 Insight: Poor Judgment: Poor Interventions PRN's: Atarax 25mg and Tylenol 650mg po x1 Therapeutic interventions: Maintained a safe and supportive environment, ensured contract for safety, provided direction and assistance as needed, provided active listening and positive encouragement, and maintained Q 15min safety checks. Restraints/seclusion/emergency medication: NA Justification of Continued Inpatient Treatment: PA, pt. continues to require medication adjustments and a safe and supportive environment.
[2021-11-01 19:00] VITALS: BP 111/62
[2021-11-01] MEDS: traZODone 150mg tablet PO SCH (21:41)
--- NOTE | 2021-11-02 01:56 | NUR ---
Nursing Progress Note: Legal hold: Voluntary signed paper work for voluntary stay today Report received from DRE Galdamez with use of SBAR. Why they are here: "Patient unable to state how he would meet his basic needs, including food and longterm. Hx of grave disability." Assessment What has happened this shift: Pt watching TV in group room at start of shift. Pt is friendly and talkative. He said that he is now voluntary. Pt is unaware of a DC plan. He would like to go to a drug rehab. He said he hears voices all the time that tell him to hurt himself. He said he feels safe here and would like to stay. He is pleasant and cooperative, took all meds, watched TV, and went to bed. S/I, H/I: Denies A/VH: +CAH, voices telling him to kill himself. Sleep: asleep at this time. ADL's: Independent Group attendance: No Group Meetings held today. Were meds taken: Yes Any med S/E: Denies. None observed. Mental Status Exam Appearance: Neat and clean, wearing green unit scrubs. Eye contact: WNL Behavior: Pleasant and cooperative, watching TV in the Community Room Speech: WNL Mood: Euthymic Affect: Congruent with mood. Thought process: Linear but experiences CAH. Thought Content: Circumstantial. Cognition: A&O x3 Insight: Poor Judgment: Poor Interventions PRN's: none Therapeutic interventions: Maintained a safe and supportive environment, ensured contract for safety, provided direction and assistance as needed, provided active listening and positive encouragement, and maintained Q 15min safety checks. Restraints/seclusion/emergency medication: NA Justification of Continued Inpatient Treatment: PA, pt. continues to require medication adjustments and a safe and supportive environment.
[2021-11-02 07:22] VITALS: BP 92/51
[2021-11-02] MEDS: folic acid 1mg tablet PO SCH (07:54)
[2021-11-02] MEDS: risperiDONE 2mg tablet PO SCH ×2 (07:54→20:08)
[2021-11-02] MEDS: benztropine 1mg tablet PO SCH ×2 (07:54→20:08)
[2021-11-02] MEDS: duloxetine 30mg CAPSULE.DR PO SCH (07:55)
[2021-11-02] MEDS: docusate sod 100mg capsule PO SCH ×2 (07:55→20:08)
[2021-11-02] MEDS: thiamine 100mg tablet PO SCH (07:55)
[2021-11-02] MEDS: gabapentin 300mg capsule PO SCH ×3 (07:55→20:09)
[2021-11-02] MEDS: risperiDONE 0.5mg tablet PO SCH ×2 (07:55→20:08)
[2021-11-02] MEDS: mineral oil/petrolatum, white cream 113gm jar TP SCH ×2 (08:00→20:12)
--- NOTE | 2021-11-02 09:36 | NUR ---
Reassessment: Pt currently on a regular diet and eating well with 100% PO intake throughout LOS meeting estimated nutrient needs. Likely wt measurement error as wt change of +9 kg from 10/20 through 10/27. LBM 10/31, receiving routine and PRN bowel care. No documented edema or wounds. No nutrition intervention at this time. Will continue to follow. Recommendations: 1) Continue regular diet 2) Routine bowel care 3) Weekly scaled weights Addendum: 11/02/21 at [address] Amended: Links added. Addendum: 11/02/21 at [address] ELIEL has reviewed and approves of above note.
--- NOTE | 2021-11-02 16:40 | NUR ---
Nursing Progress Note: Marcel Dawson Legal hold: Voluntary Report received from DRE Benavides with use of SBAR. Why they are here: Patient unable to state how he would meet his basic needs, including food and correction. Hx of grave disability. Assessment What has happened this shift: Pt. received sleeping in his room, awoke to receive his medication and 1:1 assessment completed at the bedside. Pt. reports he was admitted from [facility] d/t I was wanting to hurt myself Pt. currently denies SI, HI, but endorses AH the voices tell me to harm myself, but theyre not as bad, its gotten better. Pt. has no plan for discharge at this time. Pt. is cooperative and ate his meals both in his room and in MDR this shift. Pt. will engage briefly with cohorts at times, but isolates generally keeping to himself in social areas. Pt. spent some time in common tv room, and napped throughout the day intermittently. He doesnt appear internally preoccupied. S/I, H/I: Denies A/VH: Command AH, denies VH Sleep: 7.0 ADL's: Independent Group attendance: No Group Were meds taken: Yes Any med S/E: Denies. None observed. Mental Status Exam Appearance: Young male, long scar on the L) side of face contracted fingers bilateral and scarring. Eye contact: Fair Behavior: Pleasant and cooperative Speech: Clear Mood: Euthymic Affect: Congruent with mood. Thought process: Linear Thought Content: Circumstantial. Cognition: A&O x3 Insight: Poor Judgment: Poor Interventions PRN's: none Therapeutic interventions: Maintained a safe and supportive environment, ensured contract for safety, provided direction and assistance as needed, provided active listening and positive encouragement, and maintained Q 15min safety checks. Restraints/seclusion/emergency medication: NA Justification of Continued Inpatient Treatment: PA, pt. continues to require medication adjustments and a safe and supportive environment.
[2021-11-02] MEDS: traZODone 150mg tablet PO SCH (20:08)
[2021-11-02 20:10] VITALS: BP 100/56
--- NOTE | 2021-11-03 03:01 | NUR ---
Nursing Progress Note: Marcel Legal hold: Voluntary Report received from Denice ERICKSON with use of SBAR. Why they are here: "Patient unable to state how he would meet his basic needs, including food and fpc. Hx of grave disability." Assessment What has happened this shift: Patient was seen in the group room for 1:1. He sat there and watched movies all night until 2200. Patient says he's doing fine. Denies MH symptoms, "voices are pretty much gone." He uses few words. Pretty much isolates wherever he is. Patient accepted HS meds, then went to bed. S/I, H/I: Denies A/VH: denies. Sleep: See sleep assessment ADL's: Independent Group attendance: No Were meds taken: Yes. Any med S/E: None observed or reported Mental Status Exam Appearance: Neat and dressed in green scrubs and a blue beanie on his head. Eye contact: Good Behavior: Pleasant and cooperative, watching TV in the Community Room. Speech: Regular rate & rhythm Mood: Comfortable Affect: Congruent Thought process: Linear Thought Content: Meeting needs Cognition: A&O x3 Insight: Poor Judgment: Poor Interventions PRN's: Therapeutic interventions: Maintained a safe and supportive environment, ensured contract for safety, provided direction and assistance as needed, provided active listening and positive encouragement, and maintained Q 15min safety checks. Restraints/seclusion/emergency medication: NA Justification of Continued Inpatient Treatment: PA, pt. continues to require medication adjustments and a safe and supportive environment.
[2021-11-03 08:00] VITALS: BP 86/46
[2021-11-03 08:10] VITALS: BP 86/46
[2021-11-03] MEDS: docusate sod 100mg capsule PO SCH (09:05)
[2021-11-03] MEDS: benztropine 1mg tablet PO SCH ×2 (09:05→20:13)
[2021-11-03] MEDS: folic acid 1mg tablet PO SCH (09:06)
[2021-11-03] MEDS: duloxetine 30mg CAPSULE.DR PO SCH (09:06)
[2021-11-03] MEDS: gabapentin 300mg capsule PO SCH ×3 (09:06→20:11)
[2021-11-03] MEDS: thiamine 100mg tablet PO SCH (09:06)
[2021-11-03] MEDS: risperiDONE 2mg tablet PO SCH ×2 (09:06→20:13)
[2021-11-03] MEDS: risperiDONE 0.5mg tablet PO SCH ×2 (09:07→20:13)
[2021-11-03] MEDS: mineral oil/petrolatum, white cream 113gm jar TP SCH ×2 (09:07→20:16)
--- NOTE | 2021-11-03 14:12 | NUR ---
DCP Presenting Issues: Attending PA requests dcp support for pt as pt's ready for d/c. Pt had completed application for the [facility] services in [place]. Interventions: Clinician met w/pt and engaged him in dcp activities, pt continues to request access to substance use rehab services upon d/c. Clinician discuss possibility that there maybe no available rehab beds by the time doctor d/c pt and suggest for pt to go to a local homeless intermediate and f/u with the [facility] from there. Pt agreed to this. Clinician faxed pt's application for rehab services to the [facility] in [place]. F/u w/t/c, left vm for intake counselor to rt clinician's t/c to facilitate pt's access to rehab services. Clinician had t/c with [facility] and coordinated f/u care for pt. Plan: Pt to d/c 11/05/21. Aleah Horne LCSW Addendum: 11/03/21 at 1438 by Aleah Horne SS Amended: Links added.
[2021-11-03] MEDS ORDERED: thiamine PO (15:09)
[2021-11-03] MEDS ORDERED: gabapentin capsule PO (15:09)
[2021-11-03] MEDS ORDERED: TRAZ150T78 PO (15:09)
[2021-11-03] MEDS ORDERED: NICO-907 BC (15:09)
[2021-11-03] MEDS ORDERED: RISP3TAB63 PO (15:09)
[2021-11-03] MEDS ORDERED: HYDR-3686 PO (15:09)
[2021-11-03] MEDS ORDERED: BENZ1TAB90 PO (15:09)
[2021-11-03] MEDS ORDERED: MINE120C5 TP (15:09)
[2021-11-03] MEDS ORDERED: folic acid PO (15:09)
[2021-11-03] MEDS ORDERED: DULO30CA52 PO (15:09)
--- NOTE | 2021-11-03 17:33 | NUR ---
Nursing Progress Note: Legal hold: Voluntary Report received from BARBARA Galdamez with use of SBAR. Why they are here: "Patient unable to state how he would meet his basic needs, including food and alf. Hx of grave disability." Assessment What has happened this shift: Received patient when he was coming out of his room. Patient was happy to see another patient located on the unit, who was no longer in isolation, and they both went to the Community Room to eat breakfast, sitting at least 6 feet apart, then watch TV. After breakfast they were playing cards. Patients 1:1 assessment and interview completed. Patient reports that he is still hearing voices telling him Multiple men are coming to kill me and I cannot stop them, and it scares me. Patient states it sometimes interrupts his sleep during the night. At approximately 1450, patient joined others into going outside to a patio break. Spoke to ADRIANO Swift, as patient reports he had a BM yesterday (11/02), but it is still hard stool. Received order to increase his Colace to 250mg po bid, first dose starting tonight. Patient underwent a CXR today to rule out Tuberculosis. CXR Negative for Disease. DCP working with patient on a discharge plan at this time. S/I, H/I: Denies A/VH: Hearing voices telling me Multiple men are coming to kill me and I cannot stop them, and it scares me. Sleep: 6.75 hours Reports +AH interrupts his sleeping pattern. ADL's: Independent, Showered Today. Group attendance: No Group Meeting Held Today. Were meds taken: Yes, without hesitation. Any med S/E: None observed or reported Mental Status Exam Appearance: Neat and dressed in green scrubs and a blue beanie on his head. Eye contact: Good Behavior: Pleasant and cooperative. Watching TV & Playing cards in the Community Room. Speech: Regular rate & rhythm Mood: Comfortable Affect: Congruent Thought process: Linear Thought Content: Meeting needs Cognition: A&O x3 Insight: Poor Judgment: Poor Interventions PRN's: Therapeutic interventions: Maintained a safe and supportive environment, ensured contract for safety, provided direction and assistance as needed, provided active listening and positive encouragement, and maintained Q 15min safety checks. Restraints/seclusion/emergency medication: NA Justification of Continued Inpatient Treatment: PA, pt. continues to require medication adjustments and a safe and supportive environment.
[2021-11-03] MEDS ORDERED: docusate sod 250mg capsule PO SCH (20:00)
[2021-11-03] MEDS: traZODone 150mg tablet PO SCH (20:12)
[2021-11-03] MEDS: docusate sod 250mg capsule PO SCH (20:13)
[2021-11-03 21:58] VITALS: BP 101/62
--- NOTE | 2021-11-04 02:30 | NUR ---
Nursing Progress Note: Legal hold: Voluntary Report received from Amador RN with use of SBAR. Why they are here: "Patient unable to state how he would meet his basic needs, including food and fpc. Hx of grave disability." Assessment What has happened this shift: Patient in the group room at shift change. He watched movies for a while, then played some games with another peer that came off isolation. Patient reports he's ready for discharge in a couple days. "I still have these voices that scare me, but I can do this." He continues to compliant with staff and medications. Patient rarely expresses emotions and continues with flat affect. S/I, H/I: Denies A/VH: denies. Sleep: See sleep assessment ADL's: Independent Group attendance: No Were meds taken: Yes. Any med S/E: None observed or reported Mental Status Exam Appearance: Neat and dressed in green scrubs and a blue beanie on his head. Eye contact: Good Behavior: Pleasant and cooperative, watching TV in the Community Room. Speech: Regular rate & rhythm Mood: Comfortable Affect: Congruent Thought process: Linear Thought Content: Meeting needs Cognition: A&O x3 Insight: Poor Judgment: Poor Interventions PRN's: Therapeutic interventions: Maintained a safe and supportive environment, ensured contract for safety, provided direction and assistance as needed, provided active listening and positive encouragement, and maintained Q 15min safety checks. Restraints/seclusion/emergency medication: NA Justification of Continued Inpatient Treatment: PA, pt. continues to require medication adjustments and a safe and supportive environment.
[2021-11-04 07:00] VITALS: BP 96/53
[2021-11-04] MEDS: duloxetine 30mg CAPSULE.DR PO SCH (08:14)
[2021-11-04] MEDS: benztropine 1mg tablet PO SCH ×2 (08:14→20:37)
[2021-11-04] MEDS: folic acid 1mg tablet PO SCH (08:14)
[2021-11-04] MEDS: docusate sod 250mg capsule PO SCH ×2 (08:14→20:37)
[2021-11-04] MEDS: risperiDONE 0.5mg tablet PO SCH ×2 (08:15→20:36)
[2021-11-04] MEDS: risperiDONE 2mg tablet PO SCH ×2 (08:15→20:37)
[2021-11-04] MEDS: thiamine 100mg tablet PO SCH (08:15)
[2021-11-04] MEDS: gabapentin 300mg capsule PO SCH ×3 (08:15→20:37)
[2021-11-04] MEDS: mineral oil/petrolatum, white cream 113gm jar TP SCH ×2 (08:15→20:37)
--- NOTE | 2021-11-04 17:16 | NUR ---
Nursing Progress Note: Legal hold: Voluntary Report received from DRE Capps with use of SBAR. Why they are here: "Patient unable to state how he would meet his basic needs, including food and halfway. Hx of grave disability." Assessment What has happened this shift: Received patient while he was sitting up alongside his bed. Patient was smiling and pleasant. Appetite good. 1:1 Patient Assessment & Interview completed at patients bedside. Patient asked if he was going to be discharged tomorrow. Responded Yes to the patient. Reviewed SW Notes that were in the patients chart, and informed patient of plan on the day of discharge tomorrow. No time of discharge for tomorrow has been noted yet by the Splicer Operator, Aleah. Informed patient that he will be informed as soon as we know more information. Patient spent much of today sitting in the Community Room conversing with other patients as well as watching movies. S/I, H/I: Denies A/VH: Denies. Sleep: 7 hours. ADL's: Independent Group attendance: No Group Meeting Held Today. Were meds taken: Yes, without hesitation. Any med S/E: None observed or reported Mental Status Exam Appearance: Neat and dressed in green scrubs and a blue beanie on his head. Eye contact: Good Behavior: Pleasant and cooperative. Speech: Regular rate & rhythm Mood: Comfortable Affect: Congruent Thought process: Linear Thought Content: Meeting needs Cognition: A&O x3 Insight: Poor Judgment: Poor Interventions PRN's: None Therapeutic interventions: Maintained a safe and supportive environment, ensured contract for safety, provided direction and assistance as needed, provided active listening and positive encouragement, and maintained Q 15min safety checks. Restraints/seclusion/emergency medication: NA Justification of Continued Inpatient Treatment: PA, pt. continues to require medication adjustments and a safe and supportive environment.
[2021-11-04 20:09] VITALS: BP 104/68
[2021-11-04] MEDS: traZODone 150mg tablet PO SCH (20:37)
--- NOTE | 2021-11-05 05:25 | NUR ---
Nursing Progress Note: Marcel Legal hold: Voluntary Report received from Pilar RN with use of SBAR. Why they are here: "Patient unable to state how he would meet his basic needs, including food and detention. Hx of grave disability." Assessment What has happened this shift: Received patient in the community room watching TV with peers. Pt calm and cooperative with care. States he had heard voices telling him to hurt himself but no longer hears those voices. Denies depression and states he is looking forward to discharge tomorrow. Pt took all HS medications without issue and went to bed. S/I, H/I: Denies A/VH: States he does not hear voices at this time. Sleep: ADL's: Independent Group attendance: No Group Meetings held today. Were meds taken: Yes, without hesitation Any med S/E: None observed or reported Mental Status Exam Appearance: Neat and dressed in green scrubs and a blue beanie on his head. Eye contact: Good Behavior: Pleasant and cooperative, watching TV in the Community Room. Speech: Regular rate & rhythm Mood: Comfortable Affect: Congruent Thought process: Linear Thought Content: Meeting needs Cognition: A&O x3 Insight: Poor Judgment: Poor Interventions PRN's: Therapeutic interventions: Maintained a safe and supportive environment, ensured contract for safety, provided direction and assistance as needed, provided active listening and positive encouragement, and maintained Q 15min safety checks. Restraints/seclusion/emergency medication: NA Justification of Continued Inpatient Treatment: PA, pt. continues to require medication adjustments and a safe and supportive environment.
[2021-11-05 08:00] VITALS: BP 93/55
[2021-11-05] MEDS: benztropine 1mg tablet PO SCH (08:09)
[2021-11-05] MEDS: risperiDONE 2mg tablet PO SCH (08:10)
[2021-11-05] MEDS: gabapentin 300mg capsule PO SCH ×2 (08:10→13:28)
[2021-11-05] MEDS: risperiDONE 0.5mg tablet PO SCH (08:10)
[2021-11-05] MEDS: docusate sod 250mg capsule PO SCH (08:10)
[2021-11-05] MEDS: folic acid 1mg tablet PO SCH (08:10)
[2021-11-05] MEDS: duloxetine 30mg CAPSULE.DR PO SCH (08:10)
[2021-11-05] MEDS: mineral oil/petrolatum, white cream 113gm jar TP SCH (08:11)
[2021-11-05] MEDS: thiamine 100mg tablet PO SCH (08:11)
--- NOTE | 2021-11-05 16:19 | NUR ---
Discharge Note: 11/05/21 at 1510 Received discharge orders for patient to leave today and return to [facility], with [facility] Agent to pick him up at 1015. Per discharge guidelines, MRSA swab collected and sent to the laboratory, and wound photo of left plantar taken, as patient presented with this wound on admission to the unit. Left plantar wound has greatly improved. Area appears as dry white/clear skin and continues to heal. Reviewed discharge instructions, including medications to continue, and medications to stop. Informed patient which medications he had received this morning at 0800, and which he needed to take later this afternoon or this evening. Patient reports he understands his paperwork, his follow up appointment, and signed all required forms. Patient's belongings reviewed using his Belongings list from Admission, and all items were accounted for, and patient signed Belongings Form. Patient had a bank card and a spray ii painter locked up in the safe. Patient signed paperwork that he received this items in return at time of discharge. Patient's ride from [facility] did not arrive at 1015 as noted in Light Armored Vehicle Officer Note. TC made to [facility], and informed they would arrive betwen 1300 and 1600. Received telephone call that they were down in front of the hospital. Patient stopped at belongings lockers to apply shoes, then patient was escorted from [facility] to the front of the hospital to a private car waiting for patient.
== END 2021-11-05 15:10 | disposition home or self-care (01) | DRG 750 ==
LOC: ADULT MH 11:30
PROVIDERS: ADMIT Psychiatry & Neurology Psychiatry; ATTEND Psychiatry & Neurology Psychiatry
DX: F25.1 Schizoaffective disorder, depressive type (principal); F29 Unspecified psychosis not due to a substance or known physiological condition; R45.851 Suicidal ideations; Z59.00 Homelessness unspecified; F10.10 Alcohol abuse, uncomplicated; F15.10 Other stimulant abuse, uncomplicated; K59.00 Constipation, unspecified; M25.542 Pain in joints of left hand; Z20.822 Contact with and (suspected) exposure to COVID-19; M25.541 Pain in joints of right hand; Z79.899 Other long term (current) drug therapy; Z91.51 Personal history of suicidal behavior; Z87.820 Personal history of traumatic brain injury
CPT/HCPCS: 36415; 71045; 80061; 83036; 87081; 87635; Q0177